=== PATIENT | female | born 1930 | race Hispanic/Latino ===

== ENCOUNTER 2016-12-18 08:45 | Day surgery (SDC) | payer MEDICARE ==
[2014-12-17 11:41] VITALS: BMI 21.9
[2016-12-18 09:22] LABS: BASO # 0.02 K/mm3 (0.0-2.0); BASO % 0.3 % (0.0-3.0); EOS # 0.1 (0.0-0.7); GRAN # 4.16 (1.4-6.5); GRAN % 65.6 % (50.0-68.0); HEMOGLOBIN 13.4 gm/dL (12.0-16.0); LYMPH # 1.6 (1.2-3.4); LYMPH % 25.2 % (22.0-35.0); MEAN CELL VOLUME 89.7 fL (80.0-105.0); MEAN CORPUSCULAR HEMOGLOBIN 29.9 pg (25.0-35.0); MEAN CORPUSCULAR HGB CONC 33.3 g/dl (31.0-37.0); MONO # 0.4 (0.1-0.6); MONO % 6.9 % (1.0-6.0); PLATELET COUNT 239 10^3/uL (120.0-450.0); RBC 4.48 10^6/uL (3.5-6.1); RED CELL DISTRIBUTION WIDTH 14.1 % (11.5-14.5); WHITE BLOOD COUNT 6.4 10^3/ul (4.5-11.0)
[2016-12-18 09:32] LABS: INR 0.97 (0.93-1.08); PARTIAL THROMBOPLASTIN TIME 28.7 Seconds (23.7-30.8); PROTHROMBIN TIME 10.5 Seconds (9.9-11.8)
[2016-12-18 09:35] LABS: ALB/GLOB RATIO 1.4 (1.1-1.8); ALBUMIN 4.1 g/dL (3.0-4.8); ALT/SGPT 17 U/L (7-56); AMYLASE 93 U/L (35-125); AST/SGOT 21 U/L (15-39); BLOOD UREA NITROGEN 15 mg/dL (7-21); CALCIUM 10.1 mg/dL (8.4-10.5); GAMMA GLUTAMYL TRANSPEPTIDASE 14 U/L (8-78); GFR AFRICAN-AMERICAN > 60; GFR NON-AFRICAN AMERICAN > 60; LIPASE 63 U/L (23-300)
[2016-12-18] MEDS ORDERED: Labetalol 5 mg/ml Inj 20ML IV ONE (09:59)
[2016-12-18] MEDS ORDERED: Propofol 10 mg/ml Inj (20 ML) ONE ×2 (10:39→11:30)
[2016-12-18] MEDS ORDERED: Midazolam 2 MG/2 ML VIAL ONE (11:31)
[2016-12-18 12:04] VITALS: PULSE 70
[2016-12-18] MEDS ORDERED: Sodium Chloride 0.9% 1,000 ML IV SCH (12:30)
[2016-12-18 13:01] VITALS: BP 136/70; RESP 16; TEMP 97.6; O2SAT 98
== END 2016-12-18 13:37 | disposition home or self-care (01) ==
LOC: ENDO 08:45
PROVIDERS: ATTEND Internal Medicine Gastroenterology
DX: K21.0 Gastro-esophageal reflux disease with esophagitis (principal); K29.50 Unspecified chronic gastritis without bleeding; K44.9 Diaphragmatic hernia without obstruction or gangrene; I10 Essential (primary) hypertension
CPT/HCPCS: 36415; 43239; 43259; 80053; 82150; 82977; 83690; 85025; 85610; 85730; 88305; 88312; 88342; J0360; J2001; J2250; J2704; J7030; J7040 ×2

== ENCOUNTER 2017-02-12 10:29 | Day surgery (SDC) | payer MEDICARE ==
[2014-12-17 11:41] VITALS: BMI 21.9
[2017-02-12 11:03] LABS: BASO # 0.03 K/mm3 (0.0-2.0); BASO % 0.4 % (0.0-3.0); EOS # 0.2 (0.0-0.7); EOS % 3.2 % (1.5-5.0); GRAN # 4.34 (1.4-6.5); GRAN % 60.9 % (50.0-68.0); LYMPH % 28.2 % (22.0-35.0); MEAN CELL VOLUME 88.9 fl (80.0-105.0); MEAN CORPUSCULAR HEMOGLOBIN 29.9 pg (25.0-35.0); MEAN CORPUSCULAR HGB CONC 33.7 g/dl (31.0-37.0); MEAN PLATELET VOLUME 9.4 fl (7.0-11.0); MONO # 0.5 (0.1-0.6); MONO % 7.3 % (1.0-6.0); RED CELL DISTRIBUTION WIDTH 13.9 % (11.5-14.5); WHITE BLOOD COUNT 7.1 10^3/ul (4.5-11.0)
[2017-02-12 11:13] VITALS: RESP 18; O2SAT 96
[2017-02-12 11:14] LABS: INR 0.98 (0.93-1.08)
[2017-02-12 11:15] LABS: BLOOD UREA NITROGEN 18 mg/dL (7-21); CALCIUM 9.9 mg/dL (8.4-10.5); CARBON DIOXIDE 29 mmol/L (21-33); CHLORIDE 101 mmol/L (98-107); GFR AFRICAN-AMERICAN > 60; GLUCOSE,RANDOM 101 mg/dL (70-110); POTASSIUM 3.9 mmol/L (3.6-5.0); SODIUM 139 mmol/L (132-148)
--- NOTE | 2017-02-12 11:57 | CP.SDSHP ---
Same Day Surgery H & P - History Proposed Procedure: Ultrasound guided Thyroid biopsy Pre-Op Diagnosis: Thyroid nodule - Previous Medical/Surgical History Cardiac: Hypertension, Valvular Heart Disease, Arrhythmia Endocrine/Metabolic: Thyroid Disease (recent ultrasound showed thyroid nodule) Misc: Other (History of gall stones) Pain: 0. No Pain Comments: Has trouble with vision in the L eye since she had cateract surgery Previous Surgical History: Tonsillectomy,. Bilateral Cateracts surgery. EGD a few times. Colonoscopy a few times,last time was in 2011. Partial thyroidectomy. Hysterectomy - Allergies Allergies: Allergies rosuvastatin [From Crestor] Allergy (Severe, Verified 12/10/16 10:26) PAIN - Physical Exam General Appearance: Well nourished female Vital Signs: Vital Signs 02/12/17 02/12/17 10:50 11:15 Temperature 98.3 F 98.3 F Pulse Rate 61 61 Respiratory 18 18 Rate Blood Pressure 195/81 H 191/78 H O2 Sat by Pulse 96 96 Oximetry Mental Status: Alert & Oriented x3 Neuro: WNL Heart: WNL Lungs: WNL - {Optional Preform as Required} Abdomen: WNL Integument: Other (has ecchymotic patches on the L lower leg attributed to bug bites.) Other Pertinent Findings: Old surgical scar on the neck following partial thyroidectomy - Impression Impression: Thyroid nodule - Date & Time Date: 02/12/17 Time: 11:57 Short Stay Discharge - Short Stay Discharge Admitting Diagnosis/Reason for Visit: THYROID NODULE E04.9 Disposition: HOME/ ROUTINE Referrals: Vanesa Chan DO [Primary Care Provider] -
[2017-02-12] MEDS ORDERED: Midazolam 2 MG/2 ML VIAL ONE (13:31)
[2017-02-12] MEDS ORDERED: Oxycodone/Acetaminophen 5/325 mg Tab PO PRN (14:23)
[2017-02-12] MEDS ORDERED: Sodium Chloride 0.45% 1,000 ML IV SCH (14:30)
[2017-02-12 15:36] VITALS: BP 182/77; PULSE 51; TEMP 97.9
--- NOTE | 2017-02-12 18:23 | US ---
PROCEDURE: Ultrasound-guided right thyroid fine needle aspiration biopsy. CLINICAL HISTORY: Previous left thyroidectomy for benign disease. New 8 mm right thyroid nodule. Evaluate for malignancy PHYSICIAN(S): Akil Buchanan M.D. TECHNIQUE: The relative risks and indications for the procedure were explained to the patient and consent obtained. The patient was placed supine on the stretcher with the neck extended and preliminary sonography of the thyroid performed. This reveal an 8 mm hypoechoic nodule in the posterior aspect of the mid right thyroid. The remainder of the right thyroid parenchyma is homogeneous in echotexture. The patient is status post left thyroidectomy. The neck was prepped and draped in the usual sterile fashion. Conscious sedation and monitoring were provided throughout the procedure by a nurse. 1% Xylocaine was used to anesthetize the skin and soft tissues at the access site. Three passes with a 22-gauge needle were performed under ultrasound guidance for fine needle aspiration of the 8 mm hypoechoic nodule in the right thyroid. The slides were reviewed by pathology and deemed adequate. The patient tolerated the procedure well. IMPRESSION: 1. Ultrasound guided fine needle aspiration of a 8 mm hypoechoicnodule in the right thyroid.
== END 2017-02-12 15:50 | disposition home or self-care (01) ==
LOC: SDS 10:29
PROVIDERS: ATTEND Radiology Vascular & Interventional Radiology
DX: E04.1 Nontoxic single thyroid nodule (principal); I10 Essential (primary) hypertension